=== PATIENT | male | born 1965 | race Two or more races ===

== ENCOUNTER 2022-05-24 08:24 | Emergency (ER) | payer MEDICAID, OTHER ==
[2022-05-24] MEDS ORDERED: PROMETHAZINE HCL 25 MG/ML 1ML IM ONE (10:00)
[2022-05-24] MEDS ORDERED: MEPERIDINE HCL (50 MG/ML) 1 ML VIAL IM ONE (10:00)
[2022-05-24 10:48] VITALS: BP 108/64
[2022-05-24] MEDS ORDERED: TRAM-297 PO (10:58)
== END 2022-05-24 11:07 | disposition home or self-care (01) ==
LOC: EDBD 08:24 → ER 08:24
DX: M51.16 Intervertebral disc disorders with radiculopathy, lumbar region (principal); E11.9 Type 2 diabetes mellitus without complications; R94.31 Abnormal electrocardiogram [ECG] [EKG]
CPT/HCPCS: 72100; 93005; 96372; 99284; J2175; J2550